=== PATIENT | female | born 1935 | race Caucasian/White ===

== ENCOUNTER 2018-03-10 13:11 | Inpatient (IN) | payer MEDICARE, OTHER ==
[~2018-03-10] VITALS: Ht 167.6 cm; Wt 85.6 kg
[2018-03-10 13:55] LABS: BASOPHILS % (AUTO) 0.4 % (0-1); EOSINOPHILS % (AUTO) 0.1 % (0-6); LYMPHOCYTES # (AUTO) 0.8 X10'3 (1.1-4.8); LYMPHOCYTES % (AUTO) 6.8 % (21-51); MEAN CORPUSCULAR HEMOGLOBIN 30.9 PG (27.0-31.0); MEAN CORPUSCULAR HGB CONC 34.9 % (33.0-36.5); MEAN CORPUSCULAR VOLUME 88.7 FL (78-98); MEAN PLATELET VOLUME 6.6 FL (7.4-10.4); MONOCYTES # (AUTO) 0.7 X10'3 (0-0.9); MONOCYTES % (AUTO) 5.6 % (2-12); NEUTROPHILS # (AUTO) 10.3 X10'3 (1.8-7.7); NEUTROPHILS % (AUTO) 87.1 % (42-75); PLATELET COUNT 214 X10'3 (140-440); RED BLOOD COUNT 4.52 X10'6 (4.20-5.60); RED CELL DISTRIBUTION WIDTH 13.2 % (11.5-14.5); WHITE BLOOD COUNT 11.8 X10'3 (4.5-11.0)
[2018-03-10 14:00] LABS: INR 1.1 INR; PARTIAL THROMBOPLASTIN TIME 27 SECONDS (22-32); PROTHROMBIN TIME 10.9 SECONDS (9.0-12.0)
[2018-03-10] MEDS ORDERED: [UNRECOGNIZED DRUG - OTHER] PO (14:02)
[2018-03-10] MEDS ORDERED: VERA180T PO (14:02)
[2018-03-10] MEDS ORDERED: FLEC100T2 PO (14:02)
[2018-03-10] MEDS ORDERED: APIX5TAB3 PO (14:02)
[2018-03-10] MEDS ORDERED: LEVO137T24 PO (14:02)
[2018-03-10] MEDS ORDERED: LISI-600 PO (14:05)
[2018-03-10 14:27] LABS: GLUCOSE 117 MG/DL (70-104); POTASSIUM 4.3 MMOL/L (3.5-5.1); SODIUM 140 MMOL/L (135-145)
[2018-03-10 14:28] LABS: ALANINE AMINOTRANSFERASE 22 U/L (12-78); ALBUMIN 3.6 G/DL (3.4-5.0); ALKALINE PHOSPHATASE 78 IU/L (46-116); ANION GAP 9 (8-16); ASPARTATE AMINO TRANSFERASE 17 U/L (10-37); BILIRUBIN,TOTAL 0.9 MG/DL (0.1-1.0); BLOOD UREA NITROGEN 23 MG/DL (7-18); BUN/CREATININE RATIO 26.4 (6.6-38.0); CALCIUM 8.7 MG/DL (8.5-10.1); CHLORIDE 106 MMOL/L (99-107); CREATININE 0.87 MG/DL (0.40-0.90); TOTAL CARBON DIOXIDE 24.6 MMOL/L (24-32); TOTAL PROTEIN 7.2 G/DL (6.4-8.2); eGFR 63 ML/MIN
[2018-03-10 14:29] LABS: TROPONIN I < 0.04 NG/ML (0.0-0.05)
[2018-03-10] MEDS ORDERED: nitroGLYCERIN 1gm ointment UD TP ONE (16:05)
[2018-03-10] MEDS ORDERED: HYDROcodone/acetaminophen 5mg/325mg tablet PO ONE (16:05)
[2018-03-10] MEDS ORDERED: magnesium hydroxide 30ml (MOM) UD suspension PO PRN (18:10)
[2018-03-10] MEDS: K and/or MAG REPLACEMENT MC SCH (18:10)
[2018-03-10] MEDS ORDERED: regadenoson 0.4mg/5ml syringe IV PRN (18:10)
[2018-03-10] MEDS ORDERED: magnesium 4gm in 100ml NS 100 ML IV PRN (18:10)
[2018-03-10] MEDS ORDERED: CAFFEINE CITRATE 60 MG/3 ML injection vial IV PRN (18:10)
[2018-03-10] MEDS ORDERED: nitroGLYCERIN 0.4mg SUBLingual tab SL PRN (18:10)
[2018-03-10] MEDS ORDERED: mag hydrox/Alum hydrox/simeth 30ml oral suspension PO PRN (18:10)
[2018-03-10] MEDS ORDERED: metoprolol tartrate 1mg/ml inj IV PRN (18:10)
[2018-03-10] MEDS ORDERED: acetaminophen 325mg tablet PO PRN (18:10)
[2018-03-10] MEDS ORDERED: morphine 4 MG/ML inj SYRINge IV PRN (18:10)
[2018-03-10] MEDS ORDERED: magnesium 1gm/100ml D5W IVPB 100 ML IV PRN (18:10)
[2018-03-10] MEDS ORDERED: magnesium Cl slow-release 64mg tablet PO PRN (18:10)
[2018-03-10] MEDS ORDERED: diphenhydrAMINE 25mg capsule PO PRN (18:10)
[2018-03-10] MEDS ORDERED: potassium Cl 20 mEq SR tablet PO PRN ×2 (18:10)
[2018-03-10] MEDS ORDERED: potassium Cl 40MEQ/NS 500ml 500 ML IV PRN ×2 (18:10)
[2018-03-10] MEDS: normal saline 1000ml 1,000 ML IV SCH (18:23)
[2018-03-10 18:57] LABS: CLARITY,URINE CLEAR (Clear); COLOR,URINE YELLOW (Yellow); GLUCOSE, URINE NEGATIVE (Neg); KETONES,URINE TRACE mg/dl (Neg); LEUKOCYTE ESTERASE ,URINE NEGATIVE (Neg); NITRITES, URINE POSITIVE (Neg); OCCULT BLOOD,URINE LARGE (Neg); PROTEIN,URINE NEGATIVE (Neg); UROBILINOGEN,URINE 0.2 E.U/dL (0.2-1.0)
[2018-03-10 19:05] LABS: UA COLLECTION TYPE CLN CATCH MIDSTREAM
[2018-03-10 19:07] LABS: BACTERIA,URINE 4+ /HPF (Neg); SQUAMOUS EPITHELIAL CELL,UR FEW /LPF (FEW); WBC,URINE 0-4 /HPF (0-4)
[2018-03-10] MEDS: HYDROcodone/acetaminophen 5mg/325mg tablet PO PRN (21:49)
[2018-03-10 21:52] LABS: HEMOGLOBIN A1C 5.7 % (4.5-6.2)
[2018-03-10 22:00] VITALS: BP 132/56
[2018-03-10] MEDS ORDERED: lisinopril 20mg tablet PO SCH (22:45)
[2018-03-10] MEDS: flecainide 50mg tablet PO SCH (23:47)
[2018-03-11] VITALS (7 sets, daily range): BP systolic 91–136; BP diastolic 38–69
[2018-03-11 01:22] LABS: BASOPHILS # (AUTO) 0.2 X10'3 (0-0.2); BASOPHILS % (AUTO) 1.1 % (0-1); EOSINOPHILS % (AUTO) 0 % (0-6); HEMATOCRIT 37.4 % (35.0-45.0); HEMOGLOBIN 12.7 g/dl (12.0-16.0); LYMPHOCYTES # (AUTO) 0.8 X10'3 (1.1-4.8); LYMPHOCYTES % (AUTO) 5.9 % (21-51); MEAN CORPUSCULAR HEMOGLOBIN 31.1 PG (27.0-31.0); MEAN CORPUSCULAR HGB CONC 34.1 % (33.0-36.5); MEAN CORPUSCULAR VOLUME 91.2 FL (78-98); MEAN PLATELET VOLUME 6.6 FL (7.4-10.4); MONOCYTES # (AUTO) 0.9 X10'3 (0-0.9); MONOCYTES % (AUTO) 6.2 % (2-12); NEUTROPHILS % (AUTO) 86.8 % (42-75); PLATELET COUNT 152 X10'3 (140-440); RED CELL DISTRIBUTION WIDTH 12.4 % (11.5-14.5); WHITE BLOOD COUNT 13.9 X10'3 (4.5-11.0)
[2018-03-11 01:38] LABS: ALANINE AMINOTRANSFERASE 22 U/L (12-78); ALBUMIN/GLOBULIN RATIO 0.9 (1.1-1.5); ALKALINE PHOSPHATASE 58 IU/L (46-116); ANION GAP 4 (8-16); ASPARTATE AMINO TRANSFERASE 18 U/L (10-37); BILIRUBIN,TOTAL 1.4 MG/DL (0.1-1.0); BLOOD UREA NITROGEN 24 MG/DL (7-18); BUN/CREATININE RATIO 26.4 (6.6-38.0); CALCIUM 7.7 MG/DL (8.5-10.1); CHLORIDE 103 MMOL/L (99-107); CREATININE 0.91 MG/DL (0.40-0.90); GLUCOSE 136 MG/DL (70-104); POTASSIUM 3.7 MMOL/L (3.5-5.1); SODIUM 134 MMOL/L (135-145); TOTAL CARBON DIOXIDE 27.4 MMOL/L (24-32); TOTAL PROTEIN 6.2 G/DL (6.4-8.2); eGFR 59 ML/MIN
[2018-03-11 01:40] LABS: CHOL/HDL RATIO 2.6 (0.00-4.99); CHOLESTEROL 143 MG/DL (0-200); HDL CHOLESTEROL 56 MG/DL (35-60); LDL CHOLESTEROL 70 MG/DL (50-100); MAGNESIUM 1.6 MG/DL (1.5-2.4); TRIGLYCERIDES 123 MG/DL (20-135)
[2018-03-11] MEDS: temazepam 15mg capsule PO PRN (01:52)
[2018-03-11] MEDS: HYDROmorphone 1 mg/ml syringe IV PRN ×2 (07:10→19:56)
[2018-03-11] MEDS: levoFLOXACIN-Levaquin 500mg/D5 100 ML IV SCH (07:15)
[2018-03-11] MEDS: levoTHYROXINE 112mcg tablet PO SCH (07:17)
[2018-03-11] MEDS: metroNIDAZOLE-Flagyl 500mg/NS 100 ML IV SCH ×2 (07:17→16:33)
[2018-03-11] MEDS: levoTHYROXINE 25mcg tablet PO SCH (07:17)
[2018-03-11] MEDS: normal saline 1000ml 1,000 ML IV SCH ×2 (07:18→20:50)
[2018-03-11] MEDS: verapamil SR 180mg tablet PO SCH (07:20)
[2018-03-11] MEDS ORDERED: apixaban 5mg tablet PO SCH (08:00)
[2018-03-11] MEDS: flecainide 50mg tablet PO SCH ×2 (08:00→19:56)
[2018-03-11] MEDS: K and/or MAG REPLACEMENT MC SCH (08:00)
[2018-03-11] MEDS: ondansetron/PF 4mg/2ml inj IV PRN (11:24)
[2018-03-11] MEDS ORDERED: morphine 2 MG/ML inj. syringe IV ONE (14:50)
[2018-03-12] VITALS (21 sets, daily range): BP systolic 89–155; BP diastolic 45–80
[2018-03-12] MEDS: HYDROmorphone 1 mg/ml syringe IV PRN ×5 (00:26→19:54)
[2018-03-12] MEDS: metroNIDAZOLE-Flagyl 500mg/NS 100 ML IV SCH ×4 (00:30→23:02)
[2018-03-12 05:43] LABS: BASOPHILS % (AUTO) 0 % (0-1); EOSINOPHILS % (AUTO) 0 % (0-6); HEMATOCRIT 35.3 % (35.0-45.0); HEMOGLOBIN 12.1 g/dl (12.0-16.0); LYMPHOCYTES # (AUTO) 0.3 X10'3 (1.1-4.8); LYMPHOCYTES % (AUTO) 1.8 % (21-51); MEAN CORPUSCULAR HGB CONC 34.4 % (33.0-36.5); MEAN CORPUSCULAR VOLUME 90.1 FL (78-98); MEAN PLATELET VOLUME 6.9 FL (7.4-10.4); MONOCYTES % (AUTO) 5.8 % (2-12); NEUTROPHILS # (AUTO) 16.6 X10'3 (1.8-7.7); NEUTROPHILS % (AUTO) 92.4 % (42-75); PLATELET COUNT 145 X10'3 (140-440); RED BLOOD COUNT 3.92 X10'6 (4.20-5.60); RED CELL DISTRIBUTION WIDTH 13.1 % (11.5-14.5)
[2018-03-12 06:20] LABS: ALANINE AMINOTRANSFERASE 17 U/L (12-78); ALBUMIN 2.5 G/DL (3.4-5.0); ALBUMIN/GLOBULIN RATIO 0.7 (1.1-1.5); ALKALINE PHOSPHATASE 56 IU/L (46-116); ANION GAP 9 (8-16); ASPARTATE AMINO TRANSFERASE 18 U/L (10-37); BILIRUBIN,TOTAL 1.5 MG/DL (0.1-1.0); BLOOD UREA NITROGEN 16 MG/DL (7-18); BUN/CREATININE RATIO 21.6 (6.6-38.0); CALCIUM 7.3 MG/DL (8.5-10.1); CHLORIDE 101 MMOL/L (99-107); CREATININE 0.74 MG/DL (0.40-0.90); GLUCOSE 120 MG/DL (70-104); MAGNESIUM 1.8 MG/DL (1.5-2.4); POTASSIUM 3.7 MMOL/L (3.5-5.1); SODIUM 133 MMOL/L (135-145); TOTAL CARBON DIOXIDE 23.2 MMOL/L (24-32); eGFR 76 ML/MIN
[2018-03-12] MEDS: levoTHYROXINE 112mcg tablet PO SCH (07:00)
[2018-03-12] MEDS: levoTHYROXINE 25mcg tablet PO SCH (07:00)
[2018-03-12] MEDS: K and/or MAG REPLACEMENT MC SCH (08:00)
[2018-03-12] MEDS: levoFLOXACIN-Levaquin 500mg/D5 100 ML IV SCH (08:49)
[2018-03-12] MEDS: verapamil SR 180mg tablet PO SCH (08:49)
[2018-03-12] MEDS: flecainide 50mg tablet PO SCH ×2 (08:53→20:20)
[2018-03-12] MEDS: normal saline 1000ml 1,000 ML IV SCH (10:10)
[2018-03-12] MEDS: ondansetron/PF 4mg/2ml inj IV PRN (14:23)
[2018-03-12] MEDS ORDERED: ringers solution, lacted 1,000 ML IV SCH (14:41)
[2018-03-12] MEDS ORDERED: proCHLORperazine 10 MG/2 ml inj IV PRN (14:45)
[2018-03-12] MEDS ORDERED: morphine 4 MG/ML inj SYRINge IV PRN ×2 (14:45)
[2018-03-12] MEDS ORDERED: meperidine/PF 25mg/ml syringe IV PRN ×3 (14:45)
[2018-03-12] MEDS ORDERED: lisinopril 10 MG tablet PO SCH (14:45)
[2018-03-12] MEDS ORDERED: ondansetron/PF 4mg/2ml inj IV PRN ×2 (14:45→17:15)
[2018-03-12] MEDS ORDERED: BUPIVAcaine/PF 2.5mg/ml (0.25%) 10ml vial ONE (15:19)
[2018-03-12] MEDS ORDERED: ceFAZolin 1000mg inj ONE (15:19)
[2018-03-12] MEDS ORDERED: ondansetron/PF 4mg/2ml inj ONE (15:45)
[2018-03-12] MEDS ORDERED: dexamethasone sod phosphate 4mg/ml inj. ONE (15:45)
[2018-03-12] MEDS ORDERED: succinylcholine 20mg/ml inj IV ONE (15:45)
[2018-03-12] MEDS ORDERED: sevoflurane 250ml liquid IH ONE (15:45)
[2018-03-12] MEDS ORDERED: phenylephrine 1% (X-tra strg) 15ml nasal spray NS ONE (15:45)
[2018-03-12] MEDS ORDERED: propofol 10mg/ml 20ml vial IV ONE (15:45)
[2018-03-12] MEDS ORDERED: LIDOcaine 1%/PF 5ML 10 MG/ML VIAL ONE (15:45)
[2018-03-12] MEDS ORDERED: glycopyrrolate 0.2mg/ml inj ONE (15:45)
[2018-03-12] MEDS ORDERED: neostigmine methylsulfate 1 MG/ML 10ml vial ONE (15:45)
[2018-03-12] MEDS ORDERED: rocuronium bromide 100mg/10ml (10mg/ml) injection IV ONE (15:45)
[2018-03-12] MEDS ORDERED: fentaNYL/PF 50MCG/1 ML 2ML syringe ONE (16:03)
[2018-03-12] MEDS ORDERED: midazolam 2 mg/2 ml injection ONE (16:03)
[2018-03-12] MEDS ORDERED: albuterol 2.5 MG/3 ML nebule ONE (17:47)
[2018-03-12] MEDS ORDERED: midazolam 2 mg/2 ml injection IV ONE (18:00)
[2018-03-12] MEDS ORDERED: acetaminophen 1,000mg/100ml IV 100 ML IV ONE (18:40)
[2018-03-12 19:00] LABS: ABG BASE EXCESS -8.2 mmol/L (-2.0-3.0); ABG OXYGEN SATURATION 90.3 % (95-98); ABG PCO2 (T) 32.7 mmHg (32.0-45.0); ABG PO2 (T) 56.2 mmHg (83-108); ALLEN'S TEST Positive; FCOHb 0.3 % (0.5-1.5); FLOW 9 L/min; FMetHb 0.2 % (0.3-1.12); FO2Hb 89.8 % (94-100); PATIENT TEMPERATURE 36.4; TOTAL HEMOGLOBIN 11.9 G/dl (12.0-16.0)
[2018-03-12] MEDS ORDERED: acetaminophen 1,000mg/100ml IV 100 ML IV SCH (20:00)
[2018-03-12] MEDS ORDERED: albumin (human) 25% 100 ML IV solution IV ONE (21:00)
[2018-03-12] MEDS: HYDROcodone/acetaminophen 10/325mg tab PO PRN (21:10)
[2018-03-12] MEDS ORDERED: albumin (Human) 5% 250 ML IV solution IV STA (22:24)
[2018-03-12] MEDS ORDERED: albumin (Human) 5% 250ml 500 ML IV ONE (22:32)
[2018-03-12 23:20] LABS: BASOPHILS % (AUTO) 0 % (0-1); EOSINOPHILS % (AUTO) 0 % (0-6); HEMATOCRIT 28.8 % (35.0-45.0); HEMOGLOBIN 9.8 g/dl (12.0-16.0); LYMPHOCYTES # (AUTO) 0.2 X10'3 (1.1-4.8); MEAN CORPUSCULAR HEMOGLOBIN 31.2 PG (27.0-31.0); MEAN CORPUSCULAR HGB CONC 34.2 % (33.0-36.5); MEAN CORPUSCULAR VOLUME 91.2 FL (78-98); MEAN PLATELET VOLUME 6.6 FL (7.4-10.4); MONOCYTES # (AUTO) 0.7 X10'3 (0-0.9); MONOCYTES % (AUTO) 5.5 % (2-12); NEUTROPHILS # (AUTO) 11.3 X10'3 (1.8-7.7); NEUTROPHILS % (AUTO) 92.5 % (42-75); PLATELET COUNT 127 X10'3 (140-440); RED BLOOD COUNT 3.15 X10'6 (4.20-5.60); RED CELL DISTRIBUTION WIDTH 13.4 % (11.5-14.5); WHITE BLOOD COUNT 12.2 X10'3 (4.5-11.0)
[2018-03-12 23:34] LABS: ALANINE AMINOTRANSFERASE 43 U/L (12-78); ALBUMIN 3.2 G/DL (3.4-5.0); ALBUMIN/GLOBULIN RATIO 1.1 (1.1-1.5); ALKALINE PHOSPHATASE 43 IU/L (46-116); ANION GAP 6 (8-16); ASPARTATE AMINO TRANSFERASE 55 U/L (10-37); BLOOD UREA NITROGEN 26 MG/DL (7-18); BUN/CREATININE RATIO 19.8 (6.6-38.0); CALCIUM 6.7 MG/DL (8.5-10.1); CHLORIDE 101 MMOL/L (99-107); CREATININE 1.31 MG/DL (0.40-0.90); GLUCOSE 149 MG/DL (70-104); POTASSIUM 3.9 MMOL/L (3.5-5.1); SODIUM 133 MMOL/L (135-145); TOTAL CARBON DIOXIDE 25.6 MMOL/L (24-32); TOTAL PROTEIN 6.1 G/DL (6.4-8.2); eGFR 39 ML/MIN
[2018-03-13] VITALS (21 sets, daily range): BP systolic 99–146; BP diastolic 61–92
[2018-03-13 00:04] LABS: TROPONIN I < 0.04 NG/ML (0.0-0.05)
[2018-03-13 01:23] LABS: CLARITY,URINE CLEAR (Clear); COLOR,URINE YELLOW (Yellow); GLUCOSE, URINE NEGATIVE (Neg); KETONES,URINE NEGATIVE (Neg); LEUKOCYTE ESTERASE ,URINE NEGATIVE (Neg); NITRITES, URINE NEGATIVE (Neg); OCCULT BLOOD,URINE MODERATE (Neg); PROTEIN,URINE NEGATIVE (Neg)
[2018-03-13 01:30] LABS: UA COLLECTION TYPE NON-SPECIFIED
[2018-03-13 01:31] LABS: BACTERIA,URINE FEW /HPF (Neg); MUCUS STRANDS FEW /LPF (Neg); RBC,URINE 0-2 /HPF (0-2); SQUAMOUS EPITHELIAL CELL,UR FEW /LPF (FEW); WBC,URINE 0-4 /HPF (0-4)
[2018-03-13] MEDS: HYDROcodone/acetaminophen 10/325mg tab PO PRN ×5 (01:39→19:56)
[2018-03-13] MEDS: normal saline 1000ml 1,000 ML IV SCH ×3 (02:53→18:53)
[2018-03-13 04:02] LABS: BASOPHILS % (AUTO) 0 % (0-1); EOSINOPHILS # (AUTO) 0.1 X10'3 (0-0.9); HEMATOCRIT 29.7 % (35.0-45.0); LYMPHOCYTES # (AUTO) 0.3 X10'3 (1.1-4.8); LYMPHOCYTES % (AUTO) 3.2 % (21-51); MEAN CORPUSCULAR HGB CONC 33.7 % (33.0-36.5); MEAN CORPUSCULAR VOLUME 92.1 FL (78-98); MEAN PLATELET VOLUME 6.9 FL (7.4-10.4); MONOCYTES # (AUTO) 0.5 X10'3 (0-0.9); MONOCYTES % (AUTO) 5.2 % (2-12); NEUTROPHILS # (AUTO) 9.4 X10'3 (1.8-7.7); NEUTROPHILS % (AUTO) 90.6 % (42-75); PLATELET COUNT 128 X10'3 (140-440); RED BLOOD COUNT 3.22 X10'6 (4.20-5.60); RED CELL DISTRIBUTION WIDTH 13.1 % (11.5-14.5); WHITE BLOOD COUNT 10.4 X10'3 (4.5-11.0)
[2018-03-13 04:26] LABS: ALANINE AMINOTRANSFERASE 56 U/L (12-78); ALBUMIN 3.3 G/DL (3.4-5.0); ALBUMIN/GLOBULIN RATIO 1.1 (1.1-1.5); ALKALINE PHOSPHATASE 56 IU/L (46-116); ANION GAP 9 (8-16); ASPARTATE AMINO TRANSFERASE 82 U/L (10-37); BILIRUBIN,TOTAL 1.1 MG/DL (0.1-1.0); BLOOD UREA NITROGEN 24 MG/DL (7-18); BUN/CREATININE RATIO 24.5 (6.6-38.0); CHLORIDE 102 MMOL/L (99-107); CREATININE 0.98 MG/DL (0.40-0.90); GLUCOSE 149 MG/DL (70-104); POTASSIUM 3.9 MMOL/L (3.5-5.1); SODIUM 134 MMOL/L (135-145); TOTAL CARBON DIOXIDE 23.5 MMOL/L (24-32); TOTAL PROTEIN 6.3 G/DL (6.4-8.2); eGFR 55 ML/MIN
[2018-03-13] MEDS: HYDROmorphone 1 mg/ml syringe IV PRN ×2 (07:47→14:17)
[2018-03-13] MEDS: flecainide 50mg tablet PO SCH ×2 (08:00→19:53)
[2018-03-13] MEDS: lisinopril 10 MG tablet PO SCH (08:00)
[2018-03-13] MEDS: K and/or MAG REPLACEMENT MC SCH (08:00)
[2018-03-13] MEDS: verapamil SR 180mg tablet PO SCH (08:00)
[2018-03-13] MEDS: levoFLOXACIN-Levaquin 500mg/D5 100 ML IV SCH (08:23)
[2018-03-13] MEDS: levoTHYROXINE 112mcg tablet PO SCH (08:23)
[2018-03-13] MEDS: metroNIDAZOLE-Flagyl 500mg/NS 100 ML IV SCH ×4 (08:23→23:29)
[2018-03-13] MEDS: levoTHYROXINE 25mcg tablet PO SCH (08:23)
[2018-03-13] MEDS: ondansetron/PF 4mg/2ml inj IV PRN ×2 (08:25→15:14)
[2018-03-13] MEDS ORDERED: metoclopramide 5 mg/ml inj IV PRN (11:10)
[2018-03-13] MEDS: pantoprazole 40 MG vial IV SCH (11:53)
[2018-03-13] MEDS: lactobacillus rhamnosus 10,000 MMU CELLS/CAPSULE PO SCH (19:53)
[2018-03-14] VITALS (20 sets, daily range): BP systolic 112–149; BP diastolic 63–97
[2018-03-14] MEDS: temazepam 15mg capsule PO PRN ×2 (00:59→21:10)
[2018-03-14 04:34] LABS: BASOPHILS # (AUTO) 0.1 X10'3 (0-0.2); BASOPHILS % (AUTO) 0.4 % (0-1); EOSINOPHILS % (AUTO) 0 % (0-6); HEMATOCRIT 34.8 % (35.0-45.0); HEMOGLOBIN 11.5 g/dl (12.0-16.0); LYMPHOCYTES # (AUTO) 0.8 X10'3 (1.1-4.8); LYMPHOCYTES % (AUTO) 5.6 % (21-51); MEAN CORPUSCULAR HEMOGLOBIN 30.4 PG (27.0-31.0); MEAN CORPUSCULAR HGB CONC 33.1 % (33.0-36.5); MEAN CORPUSCULAR VOLUME 91.9 FL (78-98); MEAN PLATELET VOLUME 7.3 FL (7.4-10.4); MONOCYTES # (AUTO) 0.9 X10'3 (0-0.9); MONOCYTES % (AUTO) 6.1 % (2-12); NEUTROPHILS # (AUTO) 12.9 X10'3 (1.8-7.7); NEUTROPHILS % (AUTO) 87.9 % (42-75); PLATELET COUNT 144 X10'3 (140-440); RED BLOOD COUNT 3.79 X10'6 (4.20-5.60); RED CELL DISTRIBUTION WIDTH 13.7 % (11.5-14.5); WHITE BLOOD COUNT 14.7 X10'3 (4.5-11.0)
[2018-03-14] MEDS: normal saline 1000ml 1,000 ML IV SCH ×3 (05:32→21:08)
[2018-03-14 06:07] LABS: ALANINE AMINOTRANSFERASE 55 U/L (12-78); ALBUMIN 2.7 G/DL (3.4-5.0); ALBUMIN/GLOBULIN RATIO 0.9 (1.1-1.5); ALKALINE PHOSPHATASE 51 IU/L (46-116); ANION GAP 9 (8-16); ASPARTATE AMINO TRANSFERASE 39 U/L (10-37); BILIRUBIN,TOTAL 0.6 MG/DL (0.1-1.0); BLOOD UREA NITROGEN 22 MG/DL (7-18); BUN/CREATININE RATIO 30.1 (6.6-38.0); CALCIUM 6.7 MG/DL (8.5-10.1); CHLORIDE 106 MMOL/L (99-107); CREATININE 0.73 MG/DL (0.40-0.90); GLUCOSE 111 MG/DL (70-104); MAGNESIUM 2.1 MG/DL (1.5-2.4); POTASSIUM 3.6 MMOL/L (3.5-5.1); SODIUM 137 MMOL/L (135-145); TOTAL CARBON DIOXIDE 21.9 MMOL/L (24-32); TOTAL PROTEIN 5.8 G/DL (6.4-8.2); eGFR 77 ML/MIN
[2018-03-14] MEDS: HYDROcodone/acetaminophen 10/325mg tab PO PRN ×5 (06:47→23:20)
[2018-03-14] MEDS: levoTHYROXINE 25mcg tablet PO SCH (06:47)
[2018-03-14] MEDS: levoTHYROXINE 112mcg tablet PO SCH (06:47)
[2018-03-14] MEDS: verapamil SR 180mg tablet PO SCH (07:34)
[2018-03-14] MEDS: apixaban 5mg tablet PO SCH ×2 (07:35→19:17)
[2018-03-14] MEDS: pantoprazole 40 MG vial IV SCH (07:35)
[2018-03-14] MEDS: levoFLOXACIN-Levaquin 500mg/D5 100 ML IV SCH (07:35)
[2018-03-14] MEDS: lactobacillus rhamnosus 10,000 MMU CELLS/CAPSULE PO SCH ×2 (07:35→19:17)
[2018-03-14] MEDS: flecainide 50mg tablet PO SCH ×2 (07:35→19:17)
[2018-03-14] MEDS: lisinopril 10 MG tablet PO SCH (07:35)
[2018-03-14] MEDS: metroNIDAZOLE-Flagyl 500mg/NS 100 ML IV SCH ×3 (07:36→23:37)
[2018-03-14] MEDS: K and/or MAG REPLACEMENT MC SCH (08:00)
[2018-03-15] MEDS: HYDROcodone/acetaminophen 10/325mg tab PO PRN (03:18)
[2018-03-15 05:00] LABS: BASOPHILS % (AUTO) 0.4 % (0-1); EOSINOPHILS # (AUTO) 0.2 X10'3 (0-0.9); HEMATOCRIT 30.9 % (35.0-45.0); HEMOGLOBIN 10.5 g/dl (12.0-16.0); LYMPHOCYTES # (AUTO) 1.2 X10'3 (1.1-4.8); MEAN CORPUSCULAR HEMOGLOBIN 30.8 PG (27.0-31.0); MEAN CORPUSCULAR VOLUME 90.6 FL (78-98); MEAN PLATELET VOLUME 6.3 FL (7.4-10.4); MONOCYTES % (AUTO) 10.5 % (2-12); NEUTROPHILS # (AUTO) 7.3 X10'3 (1.8-7.7); NEUTROPHILS % (AUTO) 75.1 % (42-75); PLATELET COUNT 221 X10'3 (140-440); RED BLOOD COUNT 3.41 X10'6 (4.20-5.60); RED CELL DISTRIBUTION WIDTH 13.6 % (11.5-14.5); WHITE BLOOD COUNT 9.7 X10'3 (4.5-11.0)
[2018-03-15 05:20] LABS: ALANINE AMINOTRANSFERASE 46 U/L (12-78); ALBUMIN 2.4 G/DL (3.4-5.0); ALBUMIN/GLOBULIN RATIO 0.8 (1.1-1.5); ALKALINE PHOSPHATASE 46 IU/L (46-116); ANION GAP 8 (8-16); ASPARTATE AMINO TRANSFERASE 24 U/L (10-37); BILIRUBIN,TOTAL 0.6 MG/DL (0.1-1.0); BLOOD UREA NITROGEN 18 MG/DL (7-18); CALCIUM 6.3 MG/DL (8.5-10.1); CHLORIDE 109 MMOL/L (99-107); CREATININE 0.72 MG/DL (0.40-0.90); GLUCOSE 111 MG/DL (70-104); MAGNESIUM 1.8 MG/DL (1.5-2.4); POTASSIUM 3.1 MMOL/L (3.5-5.1); SODIUM 141 MMOL/L (135-145); TOTAL CARBON DIOXIDE 24.4 MMOL/L (24-32); TOTAL PROTEIN 5.3 G/DL (6.4-8.2); eGFR 78 ML/MIN
[2018-03-15 07:00] VITALS: BP 124/68
[2018-03-15] MEDS: pantoprazole 40 MG vial IV SCH (07:33)
[2018-03-15] MEDS: levoTHYROXINE 112mcg tablet PO SCH (07:33)
[2018-03-15] MEDS: verapamil SR 180mg tablet PO SCH (07:33)
[2018-03-15] MEDS: levoTHYROXINE 25mcg tablet PO SCH (07:34)
[2018-03-15] MEDS: flecainide 50mg tablet PO SCH ×2 (07:35→19:10)
[2018-03-15] MEDS: lisinopril 10 MG tablet PO SCH (07:35)
[2018-03-15] MEDS: apixaban 5mg tablet PO SCH ×2 (07:35→19:10)
[2018-03-15] MEDS: lactobacillus rhamnosus 10,000 MMU CELLS/CAPSULE PO SCH ×2 (07:35→19:10)
[2018-03-15] MEDS: levoFLOXACIN-Levaquin 500mg/D5 100 ML IV SCH (07:36)
[2018-03-15] MEDS: metroNIDAZOLE-Flagyl 500mg/NS 100 ML IV SCH ×3 (07:36→23:54)
[2018-03-15] MEDS: K and/or MAG REPLACEMENT MC SCH (08:00)
[2018-03-15] MEDS: HYDROcodone/acetaminophen 5mg/325mg tablet PO PRN ×2 (08:51→17:05)
[2018-03-15] MEDS: ondansetron/PF 4mg/2ml inj IV PRN (09:30)
[2018-03-15] MEDS ORDERED: potassium Cl 20 mEq SR tablet PO ONE (09:40)
[2018-03-15] MEDS ORDERED: digoxin 250mcg/ml 2ml ampule IV ONE ×2 (09:40→16:30)
[2018-03-15 11:00] VITALS: BP 112/52
[2018-03-15] MEDS: normal saline 1000ml 1,000 ML IV SCH ×2 (11:05→21:48)
[2018-03-15] MEDS: HYDROmorphone 1 mg/ml syringe IV PRN ×2 (12:08→18:53)
[2018-03-15 19:00] VITALS: BP 157/71
[2018-03-15] MEDS: temazepam 15mg capsule PO PRN (21:36)
[2018-03-16 00:10] VITALS: BP 132/57
[2018-03-16] MEDS: temazepam 15mg capsule PO PRN ×2 (01:19→20:43)
[2018-03-16] MEDS: HYDROmorphone 1 mg/ml syringe IV PRN (02:24)
[2018-03-16 05:58] LABS: ALBUMIN 2.1 G/DL (3.4-5.0); ANION GAP 9 (8-16); BLOOD UREA NITROGEN 12 MG/DL (7-18); CHLORIDE 108 MMOL/L (99-107); CREATININE 0.63 MG/DL (0.40-0.90); GLUCOSE 104 MG/DL (70-104); POTASSIUM 3.5 MMOL/L (3.5-5.1); SODIUM 142 MMOL/L (135-145); TOTAL CARBON DIOXIDE 25.3 MMOL/L (24-32); eGFR > 90 ML/MIN
[2018-03-16 06:30] LABS: CALCIUM 5.7 MG/DL (8.5-10.1)
[2018-03-16 07:00] VITALS: BP 140/85
[2018-03-16] MEDS: verapamil SR 180mg tablet PO SCH (07:22)
[2018-03-16] MEDS: levoTHYROXINE 25mcg tablet PO SCH (07:22)
[2018-03-16] MEDS: flecainide 50mg tablet PO SCH ×2 (07:22→19:38)
[2018-03-16] MEDS: levoTHYROXINE 112mcg tablet PO SCH (07:22)
[2018-03-16] MEDS: lisinopril 10 MG tablet PO SCH (08:00)
[2018-03-16] MEDS: K and/or MAG REPLACEMENT MC SCH (08:00)
[2018-03-16] MEDS ORDERED: diltiazem CD 120mg capsule (once-daily) PO ONE (08:15)
[2018-03-16] MEDS: apixaban 5mg tablet PO SCH ×2 (08:20→19:38)
[2018-03-16] MEDS: metroNIDAZOLE-Flagyl 500mg/NS 100 ML IV SCH (08:20)
[2018-03-16] MEDS: pantoprazole 40 MG vial IV SCH (08:20)
[2018-03-16] MEDS: normal saline 1000ml 1,000 ML IV SCH ×3 (08:20→19:38)
[2018-03-16] MEDS: levoFLOXACIN-Levaquin 500mg/D5 100 ML IV SCH (08:20)
[2018-03-16] MEDS: lactobacillus rhamnosus 10,000 MMU CELLS/CAPSULE PO SCH ×2 (08:20→19:38)
[2018-03-16] MEDS: HYDROcodone/acetaminophen 5mg/325mg tablet PO PRN ×2 (08:21→17:42)
[2018-03-16 11:00] VITALS: BP 136/79
[2018-03-16] MEDS: HYDROcodone/acetaminophen 10/325mg tab PO PRN (11:40)
[2018-03-16 20:00] VITALS: BP 131/78
[2018-03-17] VITALS: BP 136/74
[2018-03-17] MEDS: HYDROcodone/acetaminophen 10/325mg tab PO PRN ×3 (01:13→17:54)
[2018-03-17] MEDS: ondansetron/PF 4mg/2ml inj IV PRN (01:47)
[2018-03-17] MEDS: normal saline 1000ml 1,000 ML IV SCH (04:59)
[2018-03-17 07:04] LABS: ALBUMIN 2.1 G/DL (3.4-5.0); ANION GAP 6 (8-16); BLOOD UREA NITROGEN 6 MG/DL (7-18); BUN/CREATININE RATIO 8.3 (6.6-38.0); CHLORIDE 107 MMOL/L (99-107); CREATININE 0.72 MG/DL (0.40-0.90); GLUCOSE 113 MG/DL (70-104); POTASSIUM 3.2 MMOL/L (3.5-5.1); SODIUM 143 MMOL/L (135-145); TOTAL CARBON DIOXIDE 29.7 MMOL/L (24-32); eGFR 78 ML/MIN
[2018-03-17] MEDS: levoTHYROXINE 112mcg tablet PO SCH (07:37)
[2018-03-17] MEDS: levoFLOXACIN-Levaquin 500mg/D5 100 ML IV SCH (07:38)
[2018-03-17] MEDS: flecainide 50mg tablet PO SCH ×2 (07:38→19:34)
[2018-03-17] MEDS: verapamil SR 180mg tablet PO SCH (07:38)
[2018-03-17] MEDS: apixaban 5mg tablet PO SCH ×2 (07:38→19:34)
[2018-03-17] MEDS: levoTHYROXINE 25mcg tablet PO SCH (07:38)
[2018-03-17] MEDS: lactobacillus rhamnosus 10,000 MMU CELLS/CAPSULE PO SCH ×2 (07:38→19:34)
[2018-03-17] MEDS: pantoprazole 40 MG vial IV SCH (07:38)
[2018-03-17] MEDS: lisinopril 10 MG tablet PO SCH (07:39)
[2018-03-17 07:40] LABS: CALCIUM 5.9 MG/DL (8.5-10.1)
[2018-03-17] MEDS: K and/or MAG REPLACEMENT MC SCH (08:00)
[2018-03-17] MEDS ORDERED: calcium gluconate inj. 1 GM in normal saline 100ml IV soln 90 ML IV ONE (08:05)
[2018-03-17 08:22] VITALS: BP 131/84
[2018-03-17] MEDS ORDERED: verapamil SR 120mg (sust. release) tab PO SCH (10:45)
[2018-03-17 12:09] VITALS: BP 114/59
[2018-03-17] MEDS ORDERED: potassium Cl 40MEQ/NS 500ml 500 ML IV PRN ×2 (16:20)
[2018-03-17] MEDS ORDERED: potassium Cl 20 mEq SR tablet PO PRN (16:20)
[2018-03-17] MEDS: calcium carbonate/vitamin D3 tablet PO SCH (17:54)
[2018-03-17 18:47] LABS: MAGNESIUM 1.2 MG/DL (1.5-2.4)
[2018-03-17 20:00] VITALS: BP 133/68
[2018-03-17] MEDS: potassium Cl 20 mEq SR tablet PO PRN (21:38)
[2018-03-17] MEDS: temazepam 15mg capsule PO PRN (21:38)
[2018-03-18] VITALS: BP 156/81
[2018-03-18] MEDS ORDERED: magnesium 4gm in 100ml NS 100 ML IV PRN (01:10)
[2018-03-18] MEDS ORDERED: magnesium 1gm/100ml D5W IVPB 100 ML IV PRN (01:10)
[2018-03-18] MEDS: magnesium Cl slow-release 64mg tablet PO PRN ×2 (01:17→12:45)
[2018-03-18] MEDS: potassium Cl 20 mEq SR tablet PO PRN ×2 (01:17→05:18)
[2018-03-18] MEDS: HYDROcodone/acetaminophen 10/325mg tab PO PRN ×3 (01:23→16:56)
[2018-03-18 07:00] VITALS: BP 155/99
[2018-03-18] MEDS: levoTHYROXINE 25mcg tablet PO SCH (07:37)
[2018-03-18] MEDS: pantoprazole 40mg Tablet.DR PO SCH (07:37)
[2018-03-18] MEDS: levoTHYROXINE 112mcg tablet PO SCH (07:37)
[2018-03-18] MEDS: K and/or MAG REPLACEMENT MC SCH (08:00)
[2018-03-18] MEDS: levoFLOXACIN-Levaquin 500mg/D5 100 ML IV SCH (09:39)
[2018-03-18] MEDS: verapamil SR 120mg (sust. release) tab PO SCH (09:39)
[2018-03-18] MEDS: apixaban 5mg tablet PO SCH ×2 (09:40→20:14)
[2018-03-18] MEDS: flecainide 50mg tablet PO SCH ×2 (09:40→20:14)
[2018-03-18] MEDS: lactobacillus rhamnosus 10,000 MMU CELLS/CAPSULE PO SCH ×2 (09:40→20:14)
[2018-03-18] MEDS: calcium carbonate/vitamin D3 tablet PO SCH ×3 (09:41→17:45)
[2018-03-18] MEDS: lisinopril 10 MG tablet PO SCH (09:41)
[2018-03-18 10:09] LABS: MAGNESIUM 1.4 MG/DL (1.5-2.4)
[2018-03-18 10:51] LABS: ALANINE AMINOTRANSFERASE 29 U/L (12-78); ALBUMIN 2.3 G/DL (3.4-5.0); ALBUMIN/GLOBULIN RATIO 0.7 (1.1-1.5); ALKALINE PHOSPHATASE 49 IU/L (46-116); ANION GAP 6 (8-16); ASPARTATE AMINO TRANSFERASE 23 U/L (10-37); BILIRUBIN,TOTAL 0.5 MG/DL (0.1-1.0); BLOOD UREA NITROGEN 4 MG/DL (7-18); CALCIUM 6.7 MG/DL (8.5-10.1); CHLORIDE 106 MMOL/L (99-107); GLUCOSE 135 MG/DL (70-104); SODIUM 141 MMOL/L (135-145); TOTAL CARBON DIOXIDE 29.5 MMOL/L (24-32); TOTAL PROTEIN 5.4 G/DL (6.4-8.2); eGFR 69 ML/MIN
[2018-03-18] MEDS ORDERED: albuterol 2.5 MG/3 ML nebule NEB PRN (11:00)
[2018-03-18] MEDS ORDERED: albuterol 2.5 MG/3 ML nebule ONE (11:07)
[2018-03-18 11:31] VITALS: BP 126/55
[2018-03-18 13:19] LABS: BASOPHILS # (AUTO) 0.2 X10'3 (0-0.2); BASOPHILS % (AUTO) 1.5 % (0-1); EOSINOPHILS # (AUTO) 0.2 X10'3 (0-0.9); EOSINOPHILS % (AUTO) 1.5 % (0-6); HEMATOCRIT 34.7 % (35.0-45.0); HEMOGLOBIN 11.7 g/dl (12.0-16.0); LYMPHOCYTES # (AUTO) 1.2 X10'3 (1.1-4.8); LYMPHOCYTES % (AUTO) 10.7 % (21-51); MEAN CORPUSCULAR HEMOGLOBIN 30.6 PG (27.0-31.0); MEAN CORPUSCULAR HGB CONC 33.8 % (33.0-36.5); MEAN CORPUSCULAR VOLUME 90.7 FL (78-98); MEAN PLATELET VOLUME 6.1 FL (7.4-10.4); MONOCYTES # (AUTO) 0.6 X10'3 (0-0.9); MONOCYTES % (AUTO) 5.6 % (2-12); NEUTROPHILS # (AUTO) 9.3 X10'3 (1.8-7.7); NEUTROPHILS % (AUTO) 80.7 % (42-75); PLATELET COUNT 320 X10'3 (140-440); RED BLOOD COUNT 3.83 X10'6 (4.20-5.60); RED CELL DISTRIBUTION WIDTH 14.2 % (11.5-14.5); WHITE BLOOD COUNT 11.5 X10'3 (4.5-11.0)
[2018-03-18 18:00] VITALS: BP 145/76
[2018-03-18] MEDS: furosemide 20 MG/2 ML vial IV SCH (20:14)
[2018-03-18] MEDS: temazepam 15mg capsule PO PRN (21:32)
[2018-03-19] VITALS: BP 135/78
[2018-03-19] MEDS: magnesium Cl slow-release 64mg tablet PO PRN (01:46)
[2018-03-19 05:26] LABS: MAGNESIUM 1.5 MG/DL (1.5-2.4); POTASSIUM 3.8 MMOL/L (3.5-5.1)
[2018-03-19] MEDS: K and/or MAG REPLACEMENT MC SCH (06:38)
[2018-03-19 07:22] VITALS: BP 139/76
[2018-03-19] MEDS: lisinopril 10 MG tablet PO SCH (07:27)
[2018-03-19] MEDS: levoTHYROXINE 25mcg tablet PO SCH (07:27)
[2018-03-19] MEDS: levoTHYROXINE 112mcg tablet PO SCH (07:27)
[2018-03-19] MEDS: verapamil SR 120mg (sust. release) tab PO SCH (07:27)
[2018-03-19] MEDS: flecainide 50mg tablet PO SCH ×2 (07:28→19:16)
[2018-03-19] MEDS: apixaban 5mg tablet PO SCH ×2 (07:28→19:16)
[2018-03-19] MEDS: lactobacillus rhamnosus 10,000 MMU CELLS/CAPSULE PO SCH ×2 (07:28→19:16)
[2018-03-19] MEDS: calcium carbonate/vitamin D3 tablet PO SCH ×3 (07:29→17:19)
[2018-03-19] MEDS: pantoprazole 40mg Tablet.DR PO SCH (07:30)
[2018-03-19] MEDS: furosemide 20 MG/2 ML vial IV SCH ×2 (07:30→19:16)
[2018-03-19] MEDS: levoFLOXACIN-Levaquin 500mg/D5 100 ML IV SCH (07:30)
[2018-03-19] MEDS: HYDROcodone/acetaminophen 5mg/325mg tablet PO PRN ×2 (07:30→19:30)
[2018-03-19 10:03] LABS: BASOPHILS # (AUTO) 0.1 X10'3 (0-0.2); BASOPHILS % (AUTO) 0.5 % (0-1); EOSINOPHILS # (AUTO) 0.3 X10'3 (0-0.9); EOSINOPHILS % (AUTO) 2.8 % (0-6); HEMATOCRIT 37.3 % (35.0-45.0); HEMOGLOBIN 12.3 g/dl (12.0-16.0); LYMPHOCYTES # (AUTO) 1.3 X10'3 (1.1-4.8); LYMPHOCYTES % (AUTO) 10.9 % (21-51); MEAN CORPUSCULAR VOLUME 91.1 FL (78-98); MONOCYTES % (AUTO) 8.2 % (2-12); NEUTROPHILS % (AUTO) 77.6 % (42-75); PLATELET COUNT 385 X10'3 (140-440); RED CELL DISTRIBUTION WIDTH 14.2 % (11.5-14.5); WHITE BLOOD COUNT 11.6 X10'3 (4.5-11.0)
[2018-03-19 10:08] LABS: ALANINE AMINOTRANSFERASE 31 U/L (12-78); ALBUMIN 2.5 G/DL (3.4-5.0); ALBUMIN/GLOBULIN RATIO 0.8 (1.1-1.5); ALKALINE PHOSPHATASE 49 IU/L (46-116); ANION GAP 9 (8-16); ASPARTATE AMINO TRANSFERASE 25 U/L (10-37); BILIRUBIN,TOTAL 0.6 MG/DL (0.1-1.0); BLOOD UREA NITROGEN 7 MG/DL (7-18); BUN/CREATININE RATIO 10.3 (6.6-38.0); CALCIUM 7.1 MG/DL (8.5-10.1); CHLORIDE 102 MMOL/L (99-107); CREATININE 0.68 MG/DL (0.40-0.90); GLUCOSE 106 MG/DL (70-104); SODIUM 139 MMOL/L (135-145); TOTAL CARBON DIOXIDE 28.4 MMOL/L (24-32); TOTAL PROTEIN 5.6 G/DL (6.4-8.2); eGFR 83 ML/MIN
[2018-03-19 11:05] VITALS: BP 107/52
[2018-03-19] MEDS ORDERED: HYDR-3972 PO (12:38)
[2018-03-19] MEDS ORDERED: VERA120T96 PO ×2 (12:38→14:02)
[2018-03-19] MEDS ORDERED: FURO-150 PO (12:38)
[2018-03-19] MEDS ORDERED: verapamil SR 180mg tablet PO SCH (14:00)
[2018-03-19] MEDS ORDERED: verapamil SR 120mg (sust. release) tab PO ONE (14:15)
[2018-03-19 18:00] VITALS: BP 112/64
[2018-03-19] MEDS: temazepam 15mg capsule PO PRN (21:19)
[2018-03-19 23:00] VITALS: BP 122/67
[2018-03-20] MEDS: acetaminophen 325mg tablet PO PRN ×2 (03:04→20:13)
[2018-03-20 05:36] LABS: MAGNESIUM 1.7 MG/DL (1.5-2.4); POTASSIUM 3.6 MMOL/L (3.5-5.1)
[2018-03-20 07:04] VITALS: BP 117/63
[2018-03-20] MEDS ORDERED: verapamil SR 180mg tablet PO SCH (08:00)
[2018-03-20] MEDS: K and/or MAG REPLACEMENT MC SCH (08:00)
[2018-03-20] MEDS: levoTHYROXINE 112mcg tablet PO SCH (08:10)
[2018-03-20] MEDS: pantoprazole 40mg Tablet.DR PO SCH (08:10)
[2018-03-20] MEDS: levoTHYROXINE 25mcg tablet PO SCH (08:10)
[2018-03-20] MEDS: calcium carbonate/vitamin D3 tablet PO SCH ×3 (08:10→16:59)
[2018-03-20] MEDS: lactobacillus rhamnosus 10,000 MMU CELLS/CAPSULE PO SCH ×2 (08:11→20:09)
[2018-03-20] MEDS: furosemide 20 MG/2 ML vial IV SCH ×2 (08:11→20:11)
[2018-03-20] MEDS: apixaban 5mg tablet PO SCH ×2 (08:11→20:09)
[2018-03-20] MEDS: flecainide 50mg tablet PO SCH ×2 (08:11→20:09)
[2018-03-20] MEDS: levoFLOXACIN-Levaquin 500mg/D5 100 ML IV SCH (08:13)
[2018-03-20 13:49] VITALS: BP 105/74
[2018-03-20] MEDS ORDERED: verapamil SR 120mg (sust. release) tab PO ONE ×2 (14:10→15:20)
[2018-03-20 17:00] VITALS: BP 111/63
[2018-03-20 19:30] VITALS: BP 124/71
[2018-03-20] MEDS: temazepam 15mg capsule PO PRN (21:55)
[2018-03-21] MEDS: temazepam 15mg capsule PO PRN (01:55)
[2018-03-21 05:46] LABS: MAGNESIUM 1.5 MG/DL (1.5-2.4); POTASSIUM 3.6 MMOL/L (3.5-5.1)
[2018-03-21] MEDS: calcium carbonate/vitamin D3 tablet PO SCH (07:58)
[2018-03-21] MEDS: levoTHYROXINE 112mcg tablet PO SCH (07:58)
[2018-03-21] MEDS: levoTHYROXINE 25mcg tablet PO SCH (07:58)
[2018-03-21] MEDS: lactobacillus rhamnosus 10,000 MMU CELLS/CAPSULE PO SCH (07:58)
[2018-03-21] MEDS: apixaban 5mg tablet PO SCH (07:58)
[2018-03-21] MEDS: K and/or MAG REPLACEMENT MC SCH (07:59)
[2018-03-21] MEDS: pantoprazole 40mg Tablet.DR PO SCH (07:59)
[2018-03-21] MEDS: levoFLOXACIN-Levaquin 500mg/D5 100 ML IV SCH (07:59)
[2018-03-21] MEDS: furosemide 20 MG/2 ML vial IV SCH (07:59)
[2018-03-21 08:00] VITALS: BP 113/63
[2018-03-21] MEDS: flecainide 50mg tablet PO SCH (08:00)
[2018-03-21] MEDS ORDERED: verapamil SR 120mg (sust. release) tab PO SCH (08:00)
== END 2018-03-21 12:04 | disposition home health service (06) | DRG 417 ==
LOC: ER 13:11 → ED HOLD 18:10 → PCU 3S 20:24 → ICU 2S 03-12 19:45 → SUR 3N 03-14 17:10
PROVIDERS: ADMIT Family Medicine; ATTEND Family Medicine
PROC: CF141ZZ Planar Nuclear Medicine Imaging of Gallbladder using Technetium 99m (Tc-99m) (ICD-10-PCS; 2018-03-11)
PROC: 5A09357 Assistance with Respiratory Ventilation, Less than 24 Consecutive Hours, Continuous Positive Airway Pressure (ICD-10-PCS; 2018-03-12)
PROC: 0FT44ZZ Resection of Gallbladder, Percutaneous Endoscopic Approach (ICD-10-PCS; principal; 2018-03-12 15:52)
DX: K80.00 Calculus of gallbladder with acute cholecystitis without obstruction (principal); I50.33 Acute on chronic diastolic (congestive) heart failure; J18.9 Pneumonia, unspecified organism; N39.0 Urinary tract infection, site not specified; D62 Acute posthemorrhagic anemia; K56.7 Ileus, unspecified; B96.20 Unspecified Escherichia coli [E. coli] as the cause of diseases classified elsewhere; E83.51 Hypocalcemia; I36.1 Nonrheumatic tricuspid (valve) insufficiency; E87.6 Hypokalemia; I95.2 Hypotension due to drugs; T41.45XA Adverse effect of unspecified anesthetic, initial encounter; E88.09 Other disorders of plasma-protein metabolism, not elsewhere classified; E89.0 Postprocedural hypothyroidism; I11.0 Hypertensive heart disease with heart failure; E86.0 Dehydration; I27.20 Pulmonary hypertension, unspecified; I48.0 Paroxysmal atrial fibrillation; J44.9 Chronic obstructive pulmonary disease, unspecified; Z90.710 Acquired absence of both cervix and uterus; Z90.49 Acquired absence of other specified parts of digestive tract; Z79.01 Long term (current) use of anticoagulants; Z79.899 Other long term (current) drug therapy; Z79.890 Hormone replacement therapy; Z85.850 Personal history of malignant neoplasm of thyroid; Y92.239 Unspecified place in hospital as the place of occurrence of the external cause
CPT/HCPCS: 36415; 36600; 71045; 74018; 76700; 78227; 80048; 80053; 80061; 80162; 81001; 82310; 82803; 82948; 83036; 83605; 83735; 83880; 84132; 84443; 84484; 85018; 85025; 85610; 85730; 86885; 86900; 86901; 87040; 87070; 87077; 87088; 87186; 88304; 93005; 93306; 94640; 94660; 94760; 97110; 97116; 97162; 97530; 99285; A4315; A6213; A6251; A6257; A6258; A6449; A7000; A9537; C9113; J0131; J0330; J0610; J0690; J1100; J1160; J1170; J1940; J1956; J2001; J2250; J2270; J2405; J2704; J2710; J2765; J3010; J3490; J7030; J7120; P9045; P9047

== ENCOUNTER 2024-08-18 18:38 | Emergency (ER) | payer MEDICARE ==
[~2024-08-18] VITALS: Ht 167.6 cm; Wt 56.0 kg
[~2024-08-18 18:38] MED LIST: APIX5TAB3 PO; FLEC100T2 PO; FURO-150 PO; HYDR-3972 PO; LEVO137T24 PO; VERA120T86 PO; [UNRECOGNIZED DRUG - OTHER] PO
[2024-08-18 21:38] LABS: BASOPHILS % (AUTO) 0.4 % (0-1); EOSINOPHILS # (AUTO) 0.1 X10'3 (0-0.9); EOSINOPHILS % (AUTO) 0.9 % (0-6); HEMATOCRIT 42.6 % (35.0-45.0); HEMOGLOBIN 14.5 g/dl (12.0-16.0); LYMPHOCYTES # (AUTO) 1.6 X10'3 (1.1-4.8); LYMPHOCYTES % (AUTO) 24.4 % (21-51); MEAN CORPUSCULAR HEMOGLOBIN 30.9 PG (27.0-31.0); MEAN CORPUSCULAR HGB CONC 34.1 g/dL (33.0-36.5); MEAN CORPUSCULAR VOLUME 90.8 FL (78-98); MEAN PLATELET VOLUME 6.8 FL (7.4-10.4); MONOCYTES # (AUTO) 0.5 X10'3 (0-0.9); MONOCYTES % (AUTO) 7.4 % (2-12); NEUTROPHILS # (AUTO) 4.4 X10'3 (1.8-7.7); NEUTROPHILS % (AUTO) 66.9 % (42-75); PLATELET COUNT 112 X10'3 (140-440); RED CELL DISTRIBUTION WIDTH 13.4 % (11.5-14.5); WHITE BLOOD COUNT 6.6 X10'3 (4.5-11.0)
[2024-08-18] MEDS: meclizine 12.5mg tablet PO ONE (21:39)
[2024-08-18] MEDS: ondansetron 4mg rapidly disintigrating tab PO ONE (21:40)
[2024-08-18 21:53] LABS: BILIRUBIN,URINE NEGATIVE (Neg); CLARITY,URINE CLEAR (Clear); COLOR,URINE YELLOW (Yellow); GLUCOSE, URINE NEGATIVE (Neg); KETONES,URINE NEGATIVE (Neg); LEUKOCYTE ESTERASE ,URINE TRACE (Neg); NITRITES, URINE POSITIVE (Neg); OCCULT BLOOD,URINE MODERATE (Neg); PH,URINE 5.5 (4.8-8.0); PROTEIN,URINE NEGATIVE (Neg); UROBILINOGEN,URINE 0.2 E.U/dL (0.2-1.0)
[2024-08-18 21:55] LABS: UA COLLECTION TYPE CLN CATCH MIDSTREAM
[2024-08-18 21:59] LABS: BACTERIA,URINE 4+ /HPF (Neg); SQUAMOUS EPITHELIAL CELL,UR NONE SEEN /LPF (FEW)
[2024-08-18 22:05] LABS: ANION GAP 9 (8-16); BLOOD UREA NITROGEN 18 MG/DL (7-18); BUN/CREATININE RATIO 21.2 (10.0-20.0); CHLORIDE 107 MMOL/L (99-107); CREATININE 0.85 MG/DL (0.40-0.90); GLUCOSE 107 MG/DL (70-104); SODIUM 144 MMOL/L (135-145)
[2024-08-18 22:06] LABS: ALBUMIN 3.8 G/DL (3.4-5.0); CALCIUM 8.5 MG/DL (8.5-10.1); PRO BRAIN NATRIURETIC PEPTIDE 2280 PG/ML (0-450); eCRCL 42 ML/MIN; eGFR 63 ML/MIN
[2024-08-18] MEDS ORDERED: ONDA-243 PO (23:14)
[2024-08-18] MEDS ORDERED: MECL-226 PO (23:14)
[2024-08-18 23:46] VITALS: BP 152/100; PULSE 86; RESP 15; TEMP 97.4; O2SAT 100
[2024-08-19] MEDS ORDERED: CEPH-585 PO (01:10)
== END 2024-08-18 23:49 | disposition home or self-care (01) ==
LOC: ER 18:40
DX: H81.11 Benign paroxysmal vertigo, right ear (principal); Z79.899 Other long term (current) drug therapy
CPT/HCPCS: 36415; 80048; 81001; 83880; 84484; 85025; 87088; 87186; 93005; 99284; J8597; 87077